=== PATIENT | female | born 1975 | race Caucasian/White ===

== ENCOUNTER → 2021-08-09 | Outpatient (CLI) | payer OTHER ==
[~2021-08-09] MED LIST: PERCOCET 5-3251 EACH PO; UNITHROID200 MCG PO; ZOLOFT 50 MG TA50 MG PO
== END ==
LOC: ULTRA 13:26
PROVIDERS: ATTEND Surgery
DX: K80.80 Other cholelithiasis without obstruction (principal); M54.9 Dorsalgia, unspecified

== ENCOUNTER → 2021-08-10 | Day surgery (SDC) | payer OTHER ==
[~2021-08-10] VITALS: Ht 162.6 cm; Wt 88.5 kg
--- NOTE | ~2021-08-10 | O ---
[facility] [place] [address] OPERATIVE REPORT Name: CRISTY HERNANEDZ Room #: REG [facility]..#: [id number] Admission: 08/10/21 Attend Phys: Jamey Malagon MD Discharge: Date of : 71 Report #: [id number] THIS REPORT FOR: cc: Gregorio Huntley MD, David MD Chu,Jamey Cuba MD ~ DATE OF SERVICE: 08/10/2021 DATE OF PROCEDURE: 08/10/2021 PREOPERATIVE DIAGNOSIS: Cholecystitis with cholelithiasis. POSTOPERATIVE DIAGNOSIS: Subacute cholecystitis with cholelithiasis. Stone stuck in the proximal gallbladder. SURGEON: Jamey Malagon MD. PROCEDURES PERFORMED: Laparoscopic cholecystectomy with cholangiogram, lysis of adhesion. ANESTHESIA: General anesthesia. COMPLICATIONS: None. ESTIMATED BLOOD LOSS: 5 mL. DESCRIPTION OF PROCEDURE: The patient's abdomen was prepped and draped in sterile fashion. IV antibiotic was administered. Timeout was performed. The patient had a lower midline incision from previous open appendectomy that was complicated by small bowel obstruction. An incision was made about an inch above the umbilicus. After incising through the skin and subcutaneous tissue, the fascia was identified. The fascia was grasped with hemostat, opened under visualization, 0 Vicryl suture placed on the fascial edges for retraction. Veress needle was then placed through the peritoneum. This was placed without difficulty. CO2 was placed without difficulty. An 1- mm trocar was placed through the posterior fascia and peritoneum under visualization. No harm to the underlying tissue. The camera was then placed through the trocar and it was noted that superior and on the patient's right side with a camera, there were omental adhesions. I can see the transverse colon in the left upper quadrant that was attached to the omentum. Inferiorly, there is a small bowel that was adhesed to the wall just below the cannulation below the trocar. The only free space that was visible is in the left upper quadrant. A 5 mm trocar was placed in the left upper quadrant. Using a dissector and with cautery, the omental adhesion was taken down. This was with the aid of the 10 mm scope through the original trocar. The omentum was actually freed from the wall and then omentum was freed from the falciform ligament, the right side of the abdomen was then [address] [address] OPERATIVE REPORT Name: DAVIDCRISTY Room #: [facility] [place]..#: [id number] Admission: 08/10/21 Attend Phys: Jamey Malagon MD Discharge: Date of : 71 Report #: [id number] visualized. The trocar was then placed in right upper quadrant as usual for laparoscopic cholecystectomy, 2 in the right upper quadrant and one in the epigastrium. The camera was then placed from above and the original trocar site was freed from the adhesions. The small bowel was adherent to the wall just inferior to the cannulation through the cannula, but was not involved and this was not harmed, it was about an inch away. Small bowel was left alone. Gallbladder was identified. Gallbladder was lifted over the liver. There is mild edema in the wall. The gallbladder was followed down to the proximal part of the gallbladder. There is quite a bit of fat. The fat was teased away. It appears that the cystic artery was overlapping the cystic duct. The artery was isolated, clipped x 2 proximally, one distally and then divided. Cystic duct was noted to be moderately enlarged. The gallbladder junction, cystic duct was visualized. A clip was placed here. Clip to go all the way across. Opening was made in the cystic duct. Cholangiogram catheter was placed. I had trouble getting the catheter to go in very far and there was contrast extravasation at the cannulation site. When I went back and looked, the catheter fell and had come out. An opening was then enlarged in the cystic duct. At this time, I was able to put the catheter in further. Clip was used to hold it. Cholangiogram was then taken. The cholangiogram catheter was identified in the cystic duct. No harm to the common duct, proximal portion of cystic duct was visualized. The common duct was also visualized and noted to be intact. There were no stones present. Dye flowed readily into the duodenum. The cholangiogram catheter was then removed. The proximal cystic duct was then clipped x2. Cystic duct was then divided. A posterior cystic artery was then found. This was a fairly small size. This was clipped x2; proximally, one distally and then divided. Gallbladder freed from the liver bed without difficulty. Gallbladder was placed in a specimen bag. The bag was pulled through the 11 mm trocar site. Most of the gallbladder came out and I was able to suction the bile out. Once I did this, the gallbladder came out with the bag intact. Gallbladder was opened off the field. There is a stone that was free in the gallbladder about a centimeter in size. A second stone of the same size was stuck in the gallbladder neck. This is why the patient has been so symptomatic. The gallbladder was sent to Pathology. Pictures were taken of it. The liver bed was checked, hemostasis was excellent. Clips were intact. Irrigation was performed and irrigation was aspirated out. The trocar was then removed. CO2 was evacuated as much as possible. The downside was closed with [id number] 0 Vicryl x2. Skin was irrigated, closed with 5-0 PDS. Steri-Strip was applied. Band-Aid was used for dressing. Patient tolerated the procedure well. By: [id number] Jamey Malagon MD /nt
[2021-08-10 10:25] LABS: HEMATOCRIT 41.9 % (37.0-47.0); HEMOGLOBIN 13.9 gm/dL (12.0-15.0); MCHC 33.2 g/dL (28.0-37.0); MCV 87.3 fL (80.0-100.0); RBC 4.8 mil/uL (4.20-5.00); RDW 13.2 % (10.5-14.5); WBC 5.1 thou/uL (4.0-11.0)
[2021-08-10 10:30] VITALS: BP 127/74
[2021-08-10 10:31] LABS: CALCIUM 8.9 mg/dL (8.5-10.1); CREATININE 0.7 mg/dL (0.6-1.0); POTASSIUM 4.2 mmol/L (3.5-5.1)
[2021-08-10 10:37] LABS: ALBUMIN 3.4 g/dL (3.4-5.0); TOTAL BILIRUBIN 0.5 mg/dL (0.2-1.0); TOTAL PROTEIN 6.8 g/dL (6.4-8.2)
[2021-08-10 14:55] VITALS: BP 127/74
== END | disposition home or self-care (01) ==
LOC: OR
PROVIDERS: ATTEND Surgery
DX: K80.01 Calculus of gallbladder with acute cholecystitis with obstruction (principal); Z98.890 Other specified postprocedural states; Z79.899 Other long term (current) drug therapy; Z20.822 Contact with and (suspected) exposure to COVID-19; Z87.891 Personal history of nicotine dependence
CPT/HCPCS: 50010; 50101; 50411; 50555; 51489; 52265; 53307; 53310; 53312; 55245; 55317; 56462; 56525; 56526; 58574; 58910; 62110; 62900; 70005